=== PATIENT | male | born 1955 | race Caucasian/White ===

== ENCOUNTER 2017-01-11 17:36 | Inpatient (IN) | payer OTHER ==
[~2017-01-11] VITALS: Ht 167.6 cm; Wt 83.9 kg
--- NOTE | ~2017-01-11 | EKG ---
PATIENT: TY SOSA UNIT #: [id number] Ventricular Rate: 63 BPM Atrial Rate: 63 BPM P-R Interval: 172 ms QRS Duration: 88 ms Q-T Interval: 358 ms QTC Calculation(Bezet): 366 ms P Bridgman: 81 degrees Calculated R Bridgman: 61 degrees Calculated T Bridgman: 80 degrees Diagnosis Line: Normal sinus rhythm Diagnosis Line: Septal infarct , age undetermined Diagnosis Line: Abnormal ECG Diagnosis Line: No previous ECGs available Diagnosis Line: Confirmed by SIXTO RUIZ MD ([id number]) on Diagnosis Line: 01/13/2017 7:15:15 AM INTERPRETING MD: SARA MYERS
--- NOTE | ~2017-01-11 | CR72 ---
[facility]. [facility] A Service of [facility] & [facility] RADIOLOGY TEXT RESULTS PATIENT: TY SOSA LOCATION: SED : 59 UNIT #: [id number] AGE: [address]: Tanmay Martínez MD SEX: M ORDER DR: [id number] [place] [address] [id number] E MR#: [id number] Acc #: [id number] NAME: TY SOSA : 1955 SEX: M STUDY DATE/TIME: 01/11/2017 UNIT: SED ROOM: STUDY DESCRIPTION: CR Chest Single View Portable Attending Physician: Tanmay Martínez M.D. Ordering Physician: Tanmay [id number] Mary Jo Martínez Primary Care Physician: Chavez Cope M.D. MEDICAL IMAGING REPORT This report is preliminary unless electronic signature is present. EXAM Chest portable 01/11/2017 1843 hours HISTORY 61-year-old man complaining of chest tightness, dizziness and pressure beginning at 03:00 p.m. today. COMPARISON None. FINDINGS Portable upright chest demonstrates normal cardiac, mediastinal and aortic contours. The lungs are mildly hyperinflated but clear. There is no effusion. IMPRESSION Mild pulmonary hyperinflation. No acute cardiopulmonary findings. Heart size and aortic contours are normal. Dictated by... Babita Bryant M.D. THIS IS AN ELECTRONICALLY VERIFIED REPORT Babita Bryant M.D. at 01/12/2017 2:37 PM ISAAC/piero TD: 01/11/2017 19:17 JOB #: [id number] MEDICAL IMAGING REPORT Page 1 of 1
[2017-01-11 18:13] LABS: BASOPHIL# 0.1 X10e3 (0-0.3); BASOPHIL% 1.3 % (0-2.5); EOSINOPHIL# 0.3 X10e3 (0-0.7); EOSINOPHIL% 3.3 % (0.0-7.0); HEMATOCRIT 43.7 % (38.0-50.0); HEMOGLOBIN 15.1 gm/dL (13.0-16.0); LYMPHOCYTE# 2.7 X10e3 (1.0-3.5); LYMPHOCYTE% 34.1 % (17.0-45.0); MEAN CELL VOLUME 92.4 FL (83-96); MEAN CORPUSCULAR HEMOGLOBIN 31.9 PG (28-34); MEAN CORPUSCULAR HGB CONC 34.6 g/dL (30-36); MEAN PLATELET VOLUME 10.8 FL (6.5-11.5); MONOCYTE# 0.8 X10e3 (0-1.0); MONOCYTE% 9.9 % (3.0-12.0); NEUTROPHIL% 51.4 % (40-75); PLATELET COUNT 166 X10e3 (140-420); RED BLOOD COUNT 4.73 X10e (3.90-5.60); RED CELL DISTRIBUTION WIDTH 13.3 % (11.0-15.5); WHITE BLOOD COUNT 7.8 X10e3 (4.0-10.5)
[2017-01-11 18:15] LABS: INR 1.1; PROTHROMBIN TIME (PATIENT) 11.9 SECONDS (9.5-12.4)
[2017-01-11 18:17] LABS: POC - CKMB 1.3 ng/mL (0.0-7.9); POC - TROPONIN <0.05 ng/mL (<=0.05)
[2017-01-11 18:21] LABS: DIFF IND NO
[2017-01-11 18:23] LABS: ALBUMIN SERUM 4.4 g/dL (3.5-5.0); BILIRUBIN, DIRECT 0.1 mg/dL (0.0-0.2); BILIRUBIN,INDIRECT 0.6 mg/dL (0.0-0.9); BILIRUBIN,TOTAL 0.7 mg/dL (0.2-2.0); BUN/CREATININE RATIO 12.5; CALCIUM SERUM 8.7 mg/dL (8.4-10.2); CREATININE SERUM 0.8 mg/dL (0.6-1.4); GLOM FILT RATE Estimated 97.8 mL/min (>60); POTASSIUM 3.5 mmol/L (3.5-5.1); PROTEIN TOTAL SERUM 7.5 g/dL (6.0-8.3)
[2017-01-11 18:24] LABS: PARTIAL THROMBOPLASTIN TIME 25.7 SECONDS (25.6-38.1)
[2017-01-11 19:08] LABS: POC - CKMB <1.0 ng/mL (0.0-7.9); POC - TROPONIN <0.05 ng/mL (<=0.05)
[2017-01-11] MEDS ORDERED: LIPITOR20 MG PO (19:12)
[2017-01-11] MEDS ORDERED: ATIVAN2 MG PO (19:12)
[2017-01-11 20:07] LABS: POC - CKMB 1.6 ng/mL (0.0-7.9); POC - TROPONIN <0.05 ng/mL (<=0.05)
[2017-01-13] MEDS ORDERED: ACETAMINOPHEN650 M1 PO (10:49)
[2017-01-13] MEDS ORDERED: NICOTINE1 EAC1 TD (10:53)
[2017-01-13] MEDS ORDERED: COREG3.125 MG PO (10:54)
[2017-01-13] MEDS ORDERED: LISINOPRIL10 MG PO (10:56)
[2017-01-13] MEDS ORDERED: ASPIRIN81 MG PO (10:57)
[2017-01-13] MEDS ORDERED: BRILINTA90 MG PO (10:58)
== END 2017-01-13 14:04 | disposition home or self-care (01) | DRG 247 ==
LOC: SED 17:36 → C5B 18:57 → SED 20:25 → C5B 01-13 14:04
PROVIDERS: Emergency Medicine
PROC: 4A023N7 Measurement of Cardiac Sampling and Pressure, Left Heart, Percutaneous Approach (ICD-10-PCS; principal; 2017-01-12)
PROC: 027034Z Dilation of Coronary Artery, One Artery with Drug-eluting Intraluminal Device, Percutaneous Approach (ICD-10-PCS; 2017-01-12)
PROC: B211YZZ Fluoroscopy of Multiple Coronary Arteries using Other Contrast (ICD-10-PCS; 2017-01-12)
PROC: B215YZZ Fluoroscopy of Left Heart using Other Contrast (ICD-10-PCS; 2017-01-12)
DX: I21.4 Non-ST elevation (NSTEMI) myocardial infarction (principal); J44.9 Chronic obstructive pulmonary disease, unspecified; E78.5 Hyperlipidemia, unspecified; F17.210 Nicotine dependence, cigarettes, uncomplicated; F10.10 Alcohol abuse, uncomplicated; Z82.49 Family history of ischemic heart disease and other diseases of the circulatory system; Z71.41 Alcohol abuse counseling and surveillance of alcoholic; Z71.6 Tobacco abuse counseling; I25.10 Atherosclerotic heart disease of native coronary artery without angina pectoris; F15.90 Other stimulant use, unspecified, uncomplicated
CPT/HCPCS: 36415; 71010; 80048; 80061; 80076; 82550; 82553; 83735; 83880; 84443; 84484; 85025; 85027; 85347; 85610; 85730; 93005; 96374; 99285; C1725; C1769; C1874; C1887; C1894; J1644; J2250; J2270; J3010